=== PATIENT | male | born 1975 | race Caucasian/White ===

== ENCOUNTER 2018-10-21 18:14 | Emergency (ER) | payer OTHER ==
[2018-10-21] MEDS ORDERED: TETRACAINE HCL 0.5% OPH SOLN 4 ML OS ONE (18:41)
[2018-10-21] MEDS ORDERED: KETOROLAC TROMETHAMINE 60 MG/2 ML SDV IM ONE (18:42)
--- NOTE | 2018-10-21 18:45 | ER Document Report ---
ED Medical Screen (RME) - General Chief Complaint: Eye Problem Stated Complaint: LEFT EYE PAIN Time Seen by Provider: 10/21/18 18:35 Notes: Patient is a 43-year-old male who presents to the emergency department with a chief complaint of left eye pain and swelling. This morning he went to go put his contact and and noticed that he started to have itchiness in his eyes. He took the contact out and flushed his eye and then put a new contact in. He states that contact ended up falling out. He tried some rewetting drops to help. Patient has been rubbing his left eye. He did not have swelling to his left eye this morning. Exam: Piece of contact lens noted to anterior portion of left eye. I have greeted and performed a rapid initial assessment of this patient. A comprehensive ED assessment and evaluation of the patient, analysis of test results and completion of medical decision making process will be conducted by an additional ED providers. TRAVEL OUTSIDE OF THE [place] IN LAST 30 DAYS: No - Related Data Allergies/Adverse Reactions: No Known Allergies Allergy (Verified 10/21/18 18:15) Past Medical History - Immunizations Hx Diphtheria, Pertussis, Tetanus Vaccination: Yes Physical Exam - Vital signs Vitals: Temp Pulse Resp BP Pulse Ox 97.7 F 80 20 157/89 H 95 10/21/18 18:20 10/21/18 18:20 10/21/18 18:20 10/21/18 18:20 10/21/18 18:20 Course - Vital Signs Vital signs: Temp Pulse Resp BP Pulse Ox 97.7 F 80 20 157/89 H 95 10/21/18 18:20 10/21/18 18:20 10/21/18 18:20 10/21/18 18:20 10/21/18 18:20
[2018-10-21] MEDS ORDERED: OXYCODONE-ACETAMINOPHEN 5-325 MG TABLET PO ONE (19:23)
[2018-10-21] MEDS ORDERED: CIPROFLOXACIN HCL 0.3% OPH SOLN 2.5 ML OS ONE (19:24)
--- NOTE | 2018-10-21 19:33 | ER Document Report ---
ED General - General Chief Complaint: Eye Problem Stated Complaint: LEFT EYE PAIN Time Seen by Provider: 10/21/18 18:35 Notes: Patient is a 43-year-old male that presents to the emergency department for chief complaint of left eye pain and redness. Patient states that about 2 hours prior to ED arrival, he removed 1 of his contacts, after reading, and when he went to change the contact, he had a hard time getting it back in, so we remove that one, and then attempted for the second time to replace it, and had a hard time, he thinks he pulled it out, but is not sure, he felt like there was something stuck in his eye, at that point his pain was rather excruciating, as are was becoming red so he decided come to the emergency department. He did try flushing out his eye prior to coming to the ED and states that he thinks he may be irritated it further. He currently rates his pain as a 9 out of 10, describes as a constant aching and sharp pain in the left eye, denies pain with extraocular eye movements however. He denies any loss of vision, or changes in his vision other than he is having more tearing. He denies any headache, lightheadedness, chest pain, fevers, chills, night sweats, nausea, vomiting or abdominal pain. Past Medical History: Denies chronic medical conditions Past Surgical History: Denies recent or pertinent surgical history Social History: Denies current tobacco, alcohol or illicit drug use. Family History: Reviewed and noncontributory for presenting illness Allergies: Reviewed, see documented allergy list. REVIEW OF SYSTEMS: Other than noted above, the 12 point review of systems was reviewed with the patient and were negative, all pertinent findings are included in the HPI. PHYSICAL EXAMINATION: Vital signs reviewed, nursing noted reviewed. GENERAL: Obese male, appears uncomfortable on exam HEAD: Atraumatic, normocephalic. EYES:, extraocular movements intact, sclera anicteric, the left conjunctiva is injected, and increased hearing noted on the left, no pain with extraocular eye movements, PERRLA, under floor seen dye exam, there is a corneal abrasion noted in the 6 o'clock position, just inferior to the pupil. ENT: nares patent, oropharynx clear without exudates. Moist mucous membranes. NECK: Normal range of motion, supple without lymphadenopathy LUNGS: Breath sounds clear to auscultation bilaterally and equal. No wheezes rales or rhonchi. HEART: Regular rate and rhythm without murmurs ABDOMEN: Soft, obese, nontender, normoactive bowel sounds. No rebound, guarding, or rigidity. No masses appreciated. EXTREMITIES: Nontender, good range of motion, no pitting or edema. NEUROLOGICAL: No focal neurological deficits. Moves all extremities spontaneously Motor and sensory grossly intact on exam. PSYCH: Normal mood, normal affect. SKIN: Warm, Dry, normal turgor, no rashes or lesions noted on exposed skin TRAVEL OUTSIDE OF THE [place] IN LAST 30 DAYS: No - Related Data Allergies/Adverse Reactions: No Known Allergies Allergy (Verified 10/21/18 18:15) Past Medical History - Social History Smoking Status: Unknown if Ever Smoked Family History: Reviewed & Not Pertinent Patient has suicidal ideation: No Patient has homicidal ideation: No Renal/ Medical History: Denies: Hx Peritoneal Dialysis - Immunizations Hx Diphtheria, Pertussis, Tetanus Vaccination: Yes Physical Exam - Vital signs Vitals: Temp Pulse Resp BP Pulse Ox 97.7 F 80 20 157/89 H 95 10/21/18 18:20 10/21/18 18:20 10/21/18 18:20 10/21/18 18:20 10/21/18 18:20 - HEENT Visual acuity- Right eye: 20/30 Visual acuity- Both eyes: 20/25 Corrective lenses worn: Yes - in right eye, can not see chart out of left eye Course - Re-evaluation Re-evalutation: Patient seen and examined vital signs reviewed. Patient was evaluated and treated as appropriate for the patient's presenting symptoms and complaint, with consideration of any critical or life threatening conditions that may be associated with their obtained history and exam as noted above. Patient was treated with tetracaine eyedrop, Percocet, and Toradol The patient was re-evaluated and was stable, his eye exam, was consistent with the inferior corneal abrasion of the left eye, likely due to manipulation of contacts, patient started on ciprofloxacin eyedrops, to use them for the next 7 days and to follow-up with ophthalmology, he is also given prescription for ketorolac eyedrops. He is advised to hold off on work for tomorrow at least, and to see the eye physician as soon as possible. Patient was up-to-date with his tetanus vaccine. Evaluation was most consistent with left corneal abrasion. Plan of care was discussed with the patient at this point, after careful consideration I feel that that patient can be discharged from the emergency department, the patient was educated treatments and reasons to return to the emergency department based on their presumed diagnosis as noted above, they were advised to followup with a primary care physician in 2-3 days. Patient was agreeable to plan of care. *Note is created using voice recognition software and may contain spelling, syntax or grammatical errors. - Vital Signs Vital signs: Temp Pulse Resp BP Pulse Ox 97.7 F 80 20 157/89 H 95 10/21/18 18:20 10/21/18 18:20 10/21/18 18:20 10/21/18 18:20 10/21/18 18:20 Discharge - Discharge Clinical Impression: Left corneal abrasion Qualifiers: Encounter type: initial encounter Qualified Code(s): S05.02XA - Injury of conjunctiva and corneal abrasion without foreign body, left eye, initial encounter Condition: Stable Disposition: HOME, SELF-CARE Additional Instructions: Please follow-up with the product management intern, call for an appointment as soon as possible, apply warm compress for 10 minutes on, 4 times daily, try to get as good of rest as possible this evening, take the antibiotic eyedrops that have been dispensed in the ER as directed. Apply 1 eyedrop of the ciprofloxacin antibiotic drop every 4 hours, for 7 days. Prescriptions: Ketorolac Tromethamine [Acular] 1 drop OS Q6H PRN #5 ml PRN Reason: Referrals: JULIO BANUELOS MD [ACTIVE STAFF] - Follow up tomorrow
[2018-10-21 19:54] VITALS: BP 164/72
== END 2018-10-21 19:53 | disposition home or self-care (01) ==
LOC: ER 18:14
DX: S05.02XA Injury of conjunctiva and corneal abrasion without foreign body, left eye, initial encounter (principal); H57.12 Ocular pain, left eye; X58.XXXA Exposure to other specified factors, initial encounter
CPT/HCPCS: 99283; 96372; J1885; J3490 ×2